=== PATIENT | male | born 1985 | race Caucasian/White ===

== ENCOUNTER 2024-01-18 08:20 | Outpatient (CLI) | payer BC, SELFPAY | END 2024-01-18 08:21 | disposition home or self-care (01) | LOC: NFLDREF 01-30 11:50 | PROVIDERS: PCP Emergency Medicine; Referring Provider Emergency Medicine; Visit Provider Emergency Medicine | DX: Z13.220 Encounter for screening for lipoid disorders (principal); Z13.1 Encounter for screening for diabetes mellitus | CPT/HCPCS: 80061; 82947 ==

== ENCOUNTER 2024-01-22 17:39 | Outpatient (CLI) | payer BC, SELFPAY | END 2024-01-22 17:40 | disposition home or self-care (01) | LOC: LKVREF 17:40 | PROVIDERS: PCP Emergency Medicine; Visit Provider Emergency Medicine | DX: Z00.00 Encounter for general adult medical examination without abnormal findings (principal); R25.1 Tremor, unspecified | CPT/HCPCS: 84443 ==